=== PATIENT | male | born 1950 | race Caucasian/White ===

== ENCOUNTER → 2023-08-04 | Outpatient (REF) | LOC: M PLAIMG 10:26 | PROVIDERS: ATTEND Internal Medicine | DX: R06.02 Shortness of breath (principal) ==

== ENCOUNTER → 2024-10-04 | Outpatient (CLI) | payer OTHER | LOC: M RAD 15:09 | PROVIDERS: ATTEND Physician Assistant | DX: D49.2 Neoplasm of unspecified behavior of bone, soft tissue, and skin (principal); M79.89 Other specified soft tissue disorders; M19.042 Primary osteoarthritis, left hand ==